=== PATIENT | male | born 1980 | race Caucasian/White ===

== ENCOUNTER 2018-01-06 12:56 | Emergency (ER) | payer OTHER ==
[~2018-01-06] VITALS: Ht 170.2 cm; Wt 91.8 kg
[2018-01-06 13:26] VITALS: Ht 170.2 cm; Wt 91.8 kg
[2018-01-06 14:09] VITALS: BP 124/74
[2018-01-06 14:46] LABS: BASOPHIL % 0.3 % (0-2); PLATELET COUNT 286 x10^3mcL (130-400); RED CELL DISTRIBUTION WIDTH 13.1 % (11.5-14.5)
[2018-01-06 14:48] LABS: ALBUMIN 3.9 g/dL (3.4-5.0); ALKALINE PHOSPHATASE 66 U/L (46-116); ALT/SGPT 51 U/L (16-63); AST/SGOT 28 U/L (15-37); BILIRUBIN TOTAL 0.5 mg/dL (0.20-1.00); CALCIUM 8.3 mg/dL (8.5-10.1); CARBON DIOXIDE 29.2 mmol/L (21-32); CHLORIDE SERUM 103 mmol/L (98-107); GFR1 > 60 mL/min; POTASSIUM SERUM 3.6 mmol/L (3.5-5.1); SODIUM SERUM 138 mmol/L (136-145); TOTAL PROTEIN, SERUM 7.4 g/dL (6.4-8.2)
[2018-01-06 14:50] LABS: GLUCOSE SERUM 57 mg/dL (74-106)
== END 2018-01-06 15:55 | disposition home or self-care (01) ==
LOC: ED 12:56
PROVIDERS: Emergency Medicine
DX: E16.2 Hypoglycemia, unspecified (principal)
CPT/HCPCS: J1885; J2405; J7030; J8597; Q0092